=== PATIENT | female | born 1975 | race Caucasian/White ===

== ENCOUNTER 2017-05-16 01:58 | Emergency (ER) | payer OTHER ==
[~2017-05-16] VITALS: Ht 162.6 cm; Wt 95.3 kg
[~2017-05-16 01:58] MED LIST: ABILIFY10 MG PO; DILANTIN30 MG; ESCITALOPRAM OX20 MG PO; HYDROXYZINE HCL10 M1 PO; HYDROXYZINE PAM25 M1 PO; LEVOTHYROXIN0.075 MG PO; LEVOTHYROXINE0.05 MG PO; LEXAPRO20 MG PO; LYRICA 75 MG CA75 MG PO; MACROBID 100 M100 M1 PO; NEXIUM 40 MG CA40 M1 PO; NORCO 5-325 TA1 EACH PO; PROVENTIL HFA6.7 G1 INH; TOPAMAX 100 MG100 MG PO; VIMPAT50 MG PO; VISTARIL 25 MG25 M1 PO; VITAMIN D32000 UNIT PO
[2017-07-26] MEDS ORDERED: NEXIUM40 MG PO (17:17)
[2017-07-26] MEDS ORDERED: LEVETIRACETAM1000 MG PO (17:17)
[2017-07-26] MEDS ORDERED: RANITIDINE 150150 MG PO (17:18)
== END 2017-05-16 04:00 | disposition home or self-care (01) ==
LOC: ER 01:58
DX: S00.11XA Contusion of right eyelid and periocular area, initial encounter (principal); Z90.49 Acquired absence of other specified parts of digestive tract; Z88.0 Allergy status to penicillin; W18.39XA Other fall on same level, initial encounter; Y93.89 Activity, other specified; Y92.89 Other specified places as the place of occurrence of the external cause; Y99.8 Other external cause status

== ENCOUNTER 2018-01-06 11:50 | Emergency (ER) | payer OTHER ==
[~2018-01-06] VITALS: Ht 162.6 cm; Wt 128.8 kg
[~2018-01-06 11:50] MED LIST changes: +LEVETIRACETAM1000 MG PO; +NEXIUM40 MG PO; +RANITIDINE 150150 MG PO
[2018-01-06 12:46] LABS: ABSOLUTE NEUTROPHILS 4.8 thou/uL (1.4-8.2); BASOPHILS 0.5 % (0.0-2.0); EOSINOPHILS 1.2 % (0.0-3.0); HEMATOCRIT 44.4 % (37.0-47.0); LYMPHOCYTES 32.2 % (24.0-44.0); MCH 28.9 pg (26.0-34.0); MCHC 33.9 g/dL (28.0-37.0); MCV 85.3 fL (80.0-100.0); PLATELET COUNT 229 thou/uL (150-400); POLYS 59.1 % (36.0-66.0); RDW 13.7 % (10.5-14.5); WBC 8.1 thou/uL (4.0-11.0)
[2018-01-06 12:49] LABS: URINE BILIRUBIN NEGATIVE (Negative); URINE BLOOD NEGATIVE (Negative); URINE CLARITY CLEAR; URINE COLOR YELLOW; URINE GLUCOSE-RANDOM* NEGATIVE (Negative); URINE KETONES NEGATIVE (Negative); URINE LEUKOCYTES-REFLEX NEGATIVE (Negative); URINE NITRITE-REFLEX NEGATIVE (Negative); URINE PROTEIN (DIPSTICK) NEGATIVE (Negative); URINE SPECIFIC GRAVITY 1.015 (1.005-1.035); URINE UROBILINOGEN 0.2 E.U./dl (0.2-1.0)
[2018-01-06 13:02] LABS: CALCIUM 8.6 mg/dL (8.5-10.1); POTASSIUM 3.8 mmol/L (3.5-5.1)
[2018-01-06 13:26] VITALS: BP 108/62
== END 2018-01-06 14:03 | disposition home or self-care (01) ==
LOC: ER 11:50
PROVIDERS: Student in an Organized Health Care Education/Training Program
DX: R56.9 Unspecified convulsions (principal); Z90.49 Acquired absence of other specified parts of digestive tract; Z88.0 Allergy status to penicillin

== ENCOUNTER 2018-11-07 04:16 | Emergency (ER) | payer OTHER ==
[~2018-11-07] VITALS: Ht 162.6 cm; Wt 97.5 kg
[2018-11-07 06:00] VITALS: BP 100/63
== END 2018-11-07 06:00 | disposition home or self-care (01) ==
LOC: ER 04:16
DX: S00.431A Contusion of right ear, initial encounter (principal); S09.8XXA Other specified injuries of head, initial encounter; Z90.49 Acquired absence of other specified parts of digestive tract; Z88.0 Allergy status to penicillin; Y04.2XXA Assault by strike against or bumped into by another person, initial encounter; Y92.039 Unspecified place in apartment as the place of occurrence of the external cause; Y93.89 Activity, other specified; Y99.8 Other external cause status

== ENCOUNTER 2019-06-01 09:52 | Emergency (ER) | payer OTHER ==
[~2019-06-01] VITALS: Ht 172.7 cm; Wt 81.7 kg
[2019-06-01 12:14] VITALS: BP 114/72
== END 2019-06-01 12:14 | disposition home or self-care (01) ==
LOC: ER 09:52
DX: G40.909 Epilepsy, unspecified, not intractable, without status epilepticus (principal); Z90.49 Acquired absence of other specified parts of digestive tract; Z88.0 Allergy status to penicillin

== ENCOUNTER 2020-01-02 10:53 | Emergency (ER) | payer OTHER ==
[~2020-01-02] VITALS: Ht 172.7 cm; Wt 99.8 kg
[2020-01-02 16:17] VITALS: BP 104/62
== END 2020-01-02 16:18 | disposition home or self-care (01) ==
LOC: ER 10:53
DX: S92.412A Displaced fracture of proximal phalanx of left great toe, initial encounter for closed fracture (principal); S80.02XA Contusion of left knee, initial encounter; S00.81XA Abrasion of other part of head, initial encounter; R56.9 Unspecified convulsions; Z90.49 Acquired absence of other specified parts of digestive tract; Z79.899 Other long term (current) drug therapy; Z88.0 Allergy status to penicillin; W18.39XA Other fall on same level, initial encounter; Y93.89 Activity, other specified; Y92.89 Other specified places as the place of occurrence of the external cause; Y99.8 Other external cause status

== ENCOUNTER 2020-01-06 11:14 | Emergency (ER) | payer OTHER ==
[~2020-01-06] VITALS: Ht 172.7 cm; Wt 99.8 kg
[2020-01-06] MEDS ORDERED: MOBIC7.5 MG PO (13:05)
[2020-01-06 13:17] VITALS: BP 138/76
== END 2020-01-06 13:18 | disposition home or self-care (01) ==
LOC: ER 11:14
DX: S92.492D Other fracture of left great toe, subsequent encounter for fracture with routine healing (principal); Z91.14 Patient's other noncompliance with medication regimen; Z90.49 Acquired absence of other specified parts of digestive tract; Z79.899 Other long term (current) drug therapy; Z88.0 Allergy status to penicillin; X58.XXXD Exposure to other specified factors, subsequent encounter

== ENCOUNTER 2020-03-13 17:13 | Emergency (ER) | payer OTHER ==
[~2020-03-13] VITALS: Ht 162.6 cm; Wt 90.7 kg
[~2020-03-13 17:13] MED LIST changes: +MOBIC7.5 MG PO
[2020-03-13 18:22] LABS: CALCIUM 8.8 mg/dL (8.5-10.1); POTASSIUM 4.3 mmol/L (3.5-5.1)
[2020-03-13 18:28] LABS: ALBUMIN 3.1 g/dL (3.4-5.0); TOTAL BILIRUBIN 0.4 mg/dL (0.2-1.0); TOTAL PROTEIN 6.9 g/dL (6.4-8.2)
[2020-03-13 18:31] LABS: ABSOLUTE NEUTROPHILS 7.3 thou/uL (1.4-8.2); BASOPHILS 0.3 % (0.0-2.0); EOSINOPHILS 0.7 % (0.0-3.0); HEMATOCRIT 45.5 % (37.0-47.0); HEMOGLOBIN 14.6 gm/dL (12.0-15.0); LYMPHOCYTES 18.5 % (24.0-44.0); MCHC 32.1 g/dL (28.0-37.0); MCV 87.3 fL (80.0-100.0); MONOCYTES 5.7 % (1.0-8.0); PLATELET COUNT 282 thou/uL (150-400); POLYS 74.8 % (36.0-66.0); RBC 5.21 mil/uL (4.20-5.00); RDW 13.6 % (10.5-14.5); WBC 9.7 thou/uL (4.0-11.0)
[2020-03-13 19:18] VITALS: BP 153/83
== END 2020-03-13 19:18 | disposition home or self-care (01) ==
LOC: ER 17:13
PROVIDERS: Physician Assistant
DX: G40.909 Epilepsy, unspecified, not intractable, without status epilepticus (principal); Z90.49 Acquired absence of other specified parts of digestive tract; Z79.899 Other long term (current) drug therapy; Z88.0 Allergy status to penicillin

== ENCOUNTER 2020-11-28 00:47 | Emergency (ER) | payer OTHER ==
[~2020-11-28] VITALS: Ht 172.7 cm; Wt 97.5 kg
--- NOTE | ~2020-11-28 | EMS ---
[address] [address] EMS Patient Care Report Name: UZAIR GOODMAN Room #: PRE M.R.#: [id number] Admission: Attend Phys: Discharge: Date of : 77 Report #: [id number] THIS REPORT FOR: //name// Report Transmitted: 11/28/2020 00:22 EMS Care Summary [place], [place]/[facility] Incident [id number] @ 11/28/2020 00:14 Incident Location [address] [place] [address] Patient UZAIR GOODMAN Female, 45 Years 1975 Patient Address [address] [place] [address] Patient History Seizures,Past Traumatic Brain Injury, Patient Allergies Penicillin allergy, Patient Medications Atorvastatin, Levetiracetam, Aripiprazole, Topiramate, Hydroxyzine, Levothyroxine, Chief Complaint PASSED OUT Disposition Transported No Lights/[place] Dispatch Reason Convulsions/Seizure Transported To [facility] Narrative UPON ARRIVAL PT SUPINE ON THE LANDING AT THE BOTTOM OF ABOUT 6 STEPS. PT IS CONSCIOUS AND ALERT. PT DOES NOT REMEBER HOW SHE GOT TO THE BOTTOM OF THE STEPS [address] [address] EMS Patient Care Report Name: UZAIR GOODMAN Room #: PRE [place].#: [id number] Admission: Attend Phys: Discharge: Date of : 77 Report #: [id number] SHE'S PRETTY SURE SHE PASSED OUT THIS IS A COMMON PROBLEM. PT ALSO HAS A SEIZURE HX BUT DOES NOT APPEAR POSTICTAL. ANOTHER RESIDENT HEARD A SEZIURE OF THUMPS AND THEN FOUND PT IN HER CURRENT POSITION. PT HAS A SMALL CONTUSION TO LEFT EYEBROW BUT NO OTHER VISIBLE INJURY FOUND. PT ASSISTED TO COT AND C-COLLAR APPLIED. TRANSPORTED Initial Vitals @00:39P: 77,CO: 8,SpO2: 96, @00:29P: 70,R: 16,BP: 108/71,Pain: 4/10,GCS: 15,Glucose: 105,SpO2: 94,Revised Trauma: 12, @00:41P: 69,BP: 97/65,GCS: 15,CO: 11,SpO2: 97, Assessments @00:22MENTAL:Place Oriented,Event Oriented,Person Oriented,Time Oriented,SKIN:HEENT:Head/Face: No Abnormalities,Neck/Airway: No Abnormalities,LUNG SOUNDS:General: No Abnormalities,ABDOMEN:General: No Abnormalities,PELVIS//GI:No Abnormalities,EXTREMITIES:Left Arm: No Abnormalities,Right Arm: No Abnormalities,Left Leg: No Abnormalities,Right Leg: No Abnormalities,PULSE:Radial: 2+ Normal,NEURO:No Abnormalities, Impression Syncope / Fainting Procedures @00:22ALS AssessmentResponse: UnchangedSucceeded@00:25Spinal Motion RestrictionResponse: UnchangedSucceeded Timeline 00:13,Call Received 00:13,Dispatch Notified 00:14,Dispatched 00:16,En Route 00:20,On Scene 00:21,At Patient 00:22,ALS Assessment,Response: UnchangedSucceeded, 00:25,Spinal Motion Restriction,Response: UnchangedSucceeded, 00:29,BP: 108/71 M,PULSE: 70,RR: 16 R,SPO2: 94 Ox,ETCO2: ,B,PAIN: 4,GCS: 15, 00:32,Depart Scene 00:39,BP: / M,PULSE: 77,RR: R,SPO2: 96 Ox,ETCO2: ,BG: ,PAIN: ,GCS: , 00:41,BP: 97/65 M,PULSE: 69,RR: R,SPO2: 97 Ox,ETCO2: ,BG: ,PAIN: ,GCS: 15, 00:44,At Destination 01:00,Call Closed Disclaimer v1.1 Copyright [address] [employer] [address] [address] EMS Patient Care Report Name: JOSE GOODMANPascual HERNANDEZAN Room #: PRE M.R.#: [id number] Admission: Attend Phys: Discharge: Date of : 77 Report #: [id number] This EMS Care Summary contains data elements from the applicable legal record (which may be displayed differently). It is designed to provide pertinent information for the following purposes: continuity of care, clinical quality, and state data reporting. The complete legal record is available to ED staff and administrators of the receiving hospital in [employer]s Patient Tracker. All data is provided "as is."
[2020-11-28] MEDS ORDERED: LIPITOR10 MG PO (01:04)
[2020-11-28] MEDS ORDERED: KEPPRA100 MG/1 M PO (01:06)
[2020-11-28 01:14] LABS: ABSOLUTE NEUTROPHILS 5.9 thou/uL (1.4-8.2); BASOPHILS 0.2 % (0.0-2.0); EOSINOPHILS 0.6 % (0.0-3.0); HEMATOCRIT 42.8 % (37.0-47.0); HEMOGLOBIN 14.2 gm/dL (12.0-15.0); MCH 28.4 pg (26.0-34.0); MCHC 33.1 g/dL (28.0-37.0); MCV 85.6 fL (80.0-100.0); MONOCYTES 6.2 % (1.0-8.0); PLATELET COUNT 210 thou/uL (150-400); RDW 14.2 % (10.5-14.5); WBC 8.9 thou/uL (4.0-11.0)
[2020-11-28 01:21] LABS: ANION GAP 6 mmol/L (7-16); BUN 13 mg/dL (7-18); CHLORIDE 109 mmol/L (98-107); CO2 24 mmol/L (21-32); CREATININE 1.1 mg/dL (0.6-1.0); GLUCOSE 98 mg/dL (74-106); POTASSIUM 3.8 mmol/L (3.5-5.1); SODIUM 139 mmol/L (136-145)
[2020-11-28 01:30] LABS: SGOT 19 U/L (15-37); SGPT 22 U/L (14-59); TOTAL BILIRUBIN 0.2 mg/dL (0.2-1.0); TOTAL PROTEIN 6.5 g/dL (6.4-8.2)
[2020-11-28 01:51] LABS: URINE BILIRUBIN NEGATIVE (Negative); URINE BLOOD NEGATIVE (Negative); URINE CLARITY CLEAR; URINE COLOR YELLOW; URINE GLUCOSE-RANDOM* NEGATIVE (Negative); URINE KETONES NEGATIVE (Negative); URINE LEUKOCYTES-REFLEX TRACE (Negative); URINE NITRITE-REFLEX NEGATIVE (Negative); URINE PROTEIN (DIPSTICK) NEGATIVE (Negative); URINE SPECIFIC GRAVITY <= 1.005 (1.005-1.035); URINE UROBILINOGEN 0.2 E.U./dl (0.2-1.0)
[2020-11-28 02:00] LABS: AMP/METHAMP Negative (Negative); BARBITURATES Negative (Negative); BENZODIAZEPINES Negative (Negative); COCAINE POSITIVE (Negative); METHADONE Negative (Negative); OPIATES Negative (Negative); PCP Negative (Negative)
[2020-11-28 04:58] VITALS: BP 108/58
--- NOTE | 2020-11-28 13:39 | EKG ---
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
== END 2020-11-28 05:24 | disposition home or self-care (01) ==
LOC: ER 00:47
PROVIDERS: Emergency Medicine
DX: M54.6 Pain in thoracic spine (principal); M25.552 Pain in left hip; M54.9 Dorsalgia, unspecified; F12.90 Cannabis use, unspecified, uncomplicated; Z90.49 Acquired absence of other specified parts of digestive tract; Z79.899 Other long term (current) drug therapy; Z88.0 Allergy status to penicillin

== ENCOUNTER 2021-03-08 17:14 | Emergency (ER) | payer OTHER ==
[~2021-03-08] VITALS: Ht 170.2 cm; Wt 102.1 kg
--- NOTE | ~2021-03-08 | EMS ---
[address] [address] EMS Patient Care Report Name: UZAIR GOODMAN Room #: REG [facility].Christiano#: [id number] Admission: 03/08/21 Attend Phys: Discharge: Date of : 77 Report #: [id number] THIS REPORT FOR: //name// Report Transmitted: 03/08/2021 17:10 EMS Care Summary [place], [place]/[facility] Incident [id number] @ 03/08/2021 16:42 Incident Location [facility] [address] [place] [address] OUTSIDE [place] [id number] Patient UZAIR GOODMAN Female, 45 Years 1975 Patient Address [address] [place] [address] [place] [address] Patient History Seizures, Patient Allergies Penicillin allergy, Patient Medications Other, Chief Complaint SEIZURE Disposition Transported No Lights/[place] Dispatch Reason Convulsions/Seizure Transported To [facility] Narrative MEDIC 42 DISPATCHED FOR A SEIZURE. UPON ARRIVAL THE PATIENT WAS FOUND SUPINE ON THE GROUND OUTSIDE HER APARTMENT BUILDING APPEARING AWAKE AND IN NO DISTRESS. [address] [address] EMS Patient Care Report Name: UZAIR GOODMAN Room #: REG [facility]#: [id number] Admission: 03/08/21 Attend Phys: Discharge: Date of : 77 Report #: [id number] THE PATIENT WAS ALERT AND ABLE TO ANSWER ALL QUESTION AFTER MAKING CONTACT. A BYSTANDER STATED SHE SAW THE PATIENT GO DOWN BUT A PILLAR BLOCKED HER VIEW SO SHE DIDN'T KNOW HOW HARD SHE FELL OR HOW LONG THE SEIZURE LASTED THOUGH SHE DID STATED SHE SAW THE PATIENT'S LEGS SHAKING WHEN SHE MADE IT TO HER. THE PATIENT STATED SHE DOES HAVE A SEIZURE HISTORY. THE PATIENT CONSENTED TO ALL VITALS AND ASSESSMENT. A LUMP 5CM IN CIRCUMFERENCE WAS FOUND ON THE BACK OF HER HEAD. A C-COLLAR WAS THEN PLACED ON THE PATIENT THOUGH SHE DID DENY ANY NECK OR BACK PAIN. WITH HELP THE PATIENT GOT ONTO THE STRETCHER AND TAKEN TO THE AMBULANCE WITHOUT INCIDENT. IV AND VITALS WERE OBTAINED IN THE AMBULANCE. DURING TRANSPORT NO CHANGE IN PATIENT CONDITION WAS SEEN. UPON ARRIVAL TO THE HOSPITAL THE PATIENT WAS MOVED TO THE ED WITHOUT INCIDENT AND CARE WAS TRANSFERRED TO THE ED NURSE. Initial Vitals @17:00P: 58,CO: 2,SpO2: 98, @17:00P: 57,R: 16,BP: 104/64,Pain: 8/10,GCS: 15,SpO2: 99,Revised Trauma: 12, @16:54P: 58,R: 16,BP: 107/59,Pain: 8/10,GCS: 15,Glucose: 101,CO: 3,SpO2: 96,Revised Trauma: 12, Assessments @17:02MENTAL:Place Oriented,Time Oriented,Event Oriented,Person Oriented,SKIN:HEENT:Head/Face: Swelling,Head/Face: Mass,Head/Face: OTH,Head/Face: DENIS,Neck/Airway: No Abnormalities,LUNG SOUNDS:ABDOMEN:PELVIS//GI:EXTREMITIES:Capillary Refill: Right Upper: < 2 Sec,Capillary Refill: Left Upper: < 2 Sec,Left Arm: No Abnormalities,Right Arm: No Abnormalities,PULSE:Radial: 2+ Normal,NEURO:Seizures,@17:11MENTAL:Person Oriented,Place Oriented,Event Oriented,Time Oriented,SKIN:HEENT:Head/Face: Swelling,Head/Face: Mass,Neck/Airway: No Abnormalities,LUNG SOUNDS:ABDOMEN:PELVIS//GI:EXTREMITIES:Capillary Refill: Right Upper: < 2 Sec,Capillary Refill: Left Upper: < 2 Sec,Left Arm: No Abnormalities,Right Arm: No Abnormalities,PULSE:Radial: 2+ Normal,NEURO: Impression Seizures Procedures @16:57 IV Therapy - Saline Lock 10cc (18 ga) Site: Antecubital-Left Response: UnchangedSucceeded @16:52 Stretcher Response: Unchanged @16:49 ALS Assessment Response: UnchangedSucceeded @16:54 IV Therapy - Saline Lock 0cc (20 ga) Site: Antecubital-Left Response: UnchangedFailed @16:49 Spinal Motion Restriction Response: [place] [address] EMS Patient Care Report Name: UZAIR GOODMAN Room #: [facility] [place]#: [id number] Admission: 03/08/21 Attend Phys: Discharge: Date of : 77 Report #: [id number] 16:41,Call Received 16:41,Dispatch Notified 16:42,Dispatched 16:43,En Route 16:47,On Scene 16:48,At Patient 16:49,ALS Assessment,Response: UnchangedSucceeded, 16:49,Spinal Motion Restriction,Response: UnchangedSucceeded, 16:52,Stretcher,Response: Unchanged 16:54,IV Therapy - Saline Lock 0cc 20 ga Site: Antecubital-Left,Response: UnchangedFailed, 16:54,BP: 107/59 M,PULSE: 58,RR: 16 R,SPO2: 96 Ox,ETCO2: ,B,PAIN: 8,GCS: 15, 16:57,IV Therapy - Saline Lock 10cc 18 ga Site: Antecubital-Left,Response: UnchangedSucceeded, 16:59,Depart Scene 17:00,BP: / M,PULSE: 58,RR: R,SPO2: 98 Ox,ETCO2: ,BG: ,PAIN: ,GCS: , 17:00,BP: 104/64 M,PULSE: 57,RR: 16 R,SPO2: 99 Ox,ETCO2: ,BG: ,PAIN: 8,GCS: 15, 17:12,At Destination 17:29,Call Closed Disclaimer v1.1 Copyright 2021 [employer] This EMS Care Summary contains data elements from the applicable legal record (which may be displayed differently). It is designed to provide pertinent information for the following purposes: continuity of care, clinical quality, and state data reporting. The complete legal record is available to ED staff and administrators of the receiving hospital in [employer]'s Patient Tracker. All data is provided "as is."
[~2021-03-08 17:14] MED LIST changes: +KEPPRA100 MG/1 M PO; +LIPITOR10 MG PO
[2021-03-08 18:28] LABS: ABSOLUTE NEUTROPHILS 4.5 thou/uL (1.4-8.2); BASOPHILS 0.3 % (0.0-2.0); EOSINOPHILS 0.8 % (0.0-3.0); HEMOGLOBIN 14.6 gm/dL (12.0-15.0); LYMPHOCYTES 25.1 % (24.0-44.0); MCH 28.4 pg (26.0-34.0); MCHC 32.5 g/dL (28.0-37.0); MCV 87.5 fL (80.0-100.0); MONOCYTES 6.5 % (1.0-8.0); PLATELET COUNT 211 thou/uL (150-400); POLYS 67.3 % (36.0-66.0); RBC 5.15 mil/uL (4.20-5.00); RDW 13.7 % (10.5-14.5); WBC 6.7 thou/uL (4.0-11.0)
[2021-03-08 18:32] LABS: CALCIUM 8.1 mg/dL (8.5-10.1); CREATININE 1.1 mg/dL (0.6-1.0); POTASSIUM 3.7 mmol/L (3.5-5.1)
[2021-03-08 18:42] LABS: TOTAL BILIRUBIN 0.3 mg/dL (0.2-1.0); TOTAL PROTEIN 6.6 g/dL (6.4-8.2)
[2021-03-08 21:08] VITALS: BP 117/71
--- NOTE | 2021-03-09 09:39 | EKG ---
[place] [address] [facility] [place] [address] ELECTROCARDIOGRAM REPORT Name: UZAIR GOODMAN Room #: DEP [facility]#: [id number] Admission: 03/08/21 Attend Phys: Discharge: 03/08/21 Date of : 77 Report #: [id number] [facility] ED Test Date: 2021-03-08 Test Time: 17:26:43 Pat Name: UZAIR GOODMAN Department: Room: Gender: F [employer]: MPARK : 1975 Requested By: Carol Duffy Order Number: [id number] MD: Palomo Lai Measurements Intervals [place] Rate: 46 P: 35 CA: 135 QRS: 66 QRSD: 89 T: 26 QT: 459 QTc: 402 Interpretive Statements Sinus bradycardia Baseline wander in lead(s) V6 Compared to ECG 11/28/2020 00:59:20 Sinus rhythm no longer present Electronically Signed On 03-09-2021 9:39:47 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
== END 2021-03-08 21:32 | disposition home or self-care (01) ==
LOC: ER 17:14
PROVIDERS: Physician Assistant
DX: S00.93XA Contusion of unspecified part of head, initial encounter (principal); S09.90XA Unspecified injury of head, initial encounter; R56.9 Unspecified convulsions; R00.1 Bradycardia, unspecified; E03.9 Hypothyroidism, unspecified; E78.00 Pure hypercholesterolemia, unspecified; Z90.49 Acquired absence of other specified parts of digestive tract; Z79.899 Other long term (current) drug therapy; Z79.891 Long term (current) use of opiate analgesic; Z88.0 Allergy status to penicillin; X58.XXXA Exposure to other specified factors, initial encounter; Y93.89 Activity, other specified; Y92.89 Other specified places as the place of occurrence of the external cause; Y99.8 Other external cause status